=== PATIENT | female | born 1985 | race Caucasian/White ===

== ENCOUNTER 2018-12-17 11:30 | Outpatient (RCR) | payer SELFPAY | END 2018-12-21 23:59 | LOC: DC 11:30 | PROVIDERS: Family Provider Family Medicine; PCP Family Medicine | DX: O24.419 Gestational diabetes mellitus in pregnancy, unspecified control (principal) | CPT/HCPCS: 97802 ==

== ENCOUNTER 2018-12-24 15:50 | Outpatient (RCR) | payer SELFPAY | END 2018-12-24 23:59 | disposition home or self-care (01) | LOC: DC 15:50 | PROVIDERS: Family Provider Family Medicine; PCP Family Medicine | DX: O24.419 Gestational diabetes mellitus in pregnancy, unspecified control (principal) ==

== ENCOUNTER 2022-08-10 23:41 | Inpatient (IN) | payer SELFPAY, OTHER ==
[2022-08-10 23:47] VITALS: BMI 33.3
[2022-08-10 23:48] VITALS: PULSE 87; O2SAT 97
[2022-08-10 23:49] VITALS: PULSE 83; O2SAT 98
[2022-08-10 23:53] VITALS: BP 115/76; PULSE 93
[2022-08-10 23:54] VITALS: PULSE 91; O2SAT 97
[2022-08-10 23:56] VITALS: PULSE 92; O2SAT 93
[2022-08-11] VITALS (19 sets, daily range): BP systolic 96–120; BP diastolic 52–76; PULSE 68–92; RESP 16–20; TEMP 36.5–36.8; O2SAT 91–100
[2022-08-11] MEDS: Acetaminophen 500 MG Tablet PO (00:22)
[2022-08-11] MEDS: Sodium Citrate/Citric Acid 30 ML UDC PO (00:22)
[2022-08-11] MEDS: Lactated Ringers 1,000 ML 999 ML IV (00:22)
[2022-08-11 00:25] LABS: Absolute Lymphocyte Count 2.87 X10^3/uL (0.83-4.51); Absolute Neutrophil Count 8.6 X10^3/uL (2.0-7.7); Basophil# 0.04 X10^3/uL; Basophil% 0.3 % (0-1); Eosinophil# 0.27 X10^3/uL; Eosinophils% 2.1 % (0-5); Hematocrit 37.7 % (37-47); Hemoglobin 12.6 g/dL (12.0-15.0); Lymphocyte # 2.87 X10^3/ul (0.83-4.51); Lymphocyte % 22.6 % (19-41); Mean Corp Hgb Conc 33.4 g/dL (32-36); Mean Corpuscular Hgb 32.8 pg (27.0-32.0); Mean Corpuscular Volume 98.2 fL (81-99); Mean Platelet Vol. 9.9 fl (6.2-12.0); Monocyte% 7.1 % (0-10); NRBC Flagged by Analyzer 0 % (0-5); Neutrophil # 8.55 X10^3/uL (2.7-7.7); Neutrophil % 67.3 % (47-70); Platelet Count 333 K/mm3 (150-450); RBC Distribution Width CV 13.3 % (11.6-14.6); RBC Distribution Width SD 47.6 fl (35.1-43.9); Red Blood Count 3.84 M/mm3 (4.2-5.4); White Blood Count 12.7 K/mm3 (4.4-11.0)
--- NOTE | 2022-08-11 00:25 | PCM.HP.OB ---
HPI - General General Date of Admission: 08/11/22 Date of Service: 08/11/22 HPI Narrative ALVARADO DYE, is a 36 F @ 37.2 weeks who c/o ctx since 7pm - found to be 7cm on admission- h/o 2 previous cs, ? myomectomy and 2 previous vaginal deliveries. PFSH PFSH Medical History (Updated 08/11/22 @ 00:[address] Elmira Gaming MD) Gestational diabetes History of pre-term labor Vaginal after Allergy/AdvReac Type Severity Reaction Status Date / Time No Known Allergies Allergy Verified 08/10/22 23:50 Surgical History (Updated 08/11/22 @ 00:[address] Elmira Gaming MD) History of surgery Previous section Social History Smoking Status: Never smoker History Elective abortions Hx Para 4 Spontaneous abortions Hx # Term Pregnancies Ectopic pregnancies Hx # Pregnancies Multiple births # of living children NST FHR Rate Baby A Baseline: 140 Variability:: Moderate Accelerations:: 15 x 15 Decelerations:: None NST Reactive:: Yes FHR Category:: Category I Uterine Activity:: q2-5 min Vital Signs Vital Signs Vital Signs: 08/11/22 00:18 08/10/22 23:48 08/10/22 23:48 Temperature 98.1 F Temperature Source Temporal Pulse Rate 92 87 Respiratory Rate 16 Blood Pressure 115/76 Blood Pressure Mean 89 BP Systolic BP Diastolic Blood Pressure Source Monitor Blood Pressure Position Semi-Fowlers Blood Pressure Location Right Arm Pulse Ox 97 97 Oxygen Delivery Method Room Air 08/10/22 23:49 08/10/22 23:49 08/10/22 23:53 Temperature Temperature Source Pulse Rate 83 Respiratory Rate Blood Pressure 115/76 Blood Pressure Mean BP Systolic 115 BP Diastolic 76 Blood Pressure Source Blood Pressure Position Blood Pressure Location Pulse Ox 98 Oxygen Delivery Method 08/10/22 23:53 08/10/22 23:54 08/10/22 23:54 Temperature Temperature Source Pulse Rate 93 91 Respiratory Rate Blood Pressure Blood Pressure Mean BP Systolic BP Diastolic Blood Pressure Source Blood Pressure Position Blood Pressure Location Pulse Ox 97 Oxygen Delivery Method 08/10/22 23:56 08/10/22 23:56 Temperature Temperature Source Pulse Rate 92 Respiratory Rate Blood Pressure Blood Pressure Mean BP Systolic BP Diastolic Blood Pressure Source Blood Pressure Position Blood Pressure Location Pulse Ox 93 Oxygen Delivery Method Weight Weight: 93.7 kg Body Mass Index (BMI) 33.3 Labs Labs Labs: Blood Type Pending Antibody Screen Pending Hct Pending Hgb Pending Syphilis Total Ab Pending HIV 1&2 Antibody Pending Assessment & Plan (1) Gestational diabetes mellitus (GDM): (2) 37 weeks gestation of : (3) Previous delivery affecting : (4) AMA (advanced maternal age) multigravida 35+: (5) Encounter for sterilization: (6) Arrested active labor, delivered, current hospitalization: (7) Late care affecting : (8) Positive GBS test: PLAN: Plan Admit to L&D [place] FHR/TOCO Epidural if requested for pain Monitor VS OR team notified Will plan for cs- recheck in OR prior to spinal if complete consider Vaginal delivery Ancef 2g
[2022-08-11] MEDS: Oxytocin 15 Units/NS 250ml 15 UNITS/250 ML IV.SOLN 83 UNITS IV (01:09)
[2022-08-11] MEDS: Oxytocin 10 UNITS/ML Vial IM (01:11)
--- NOTE | 2022-08-11 01:15 | PCM.PN.BLA ---
Progress Note Patient was taken to the operating room at that time prior to spinal decision was made to perform a cervical exam she was found to be 9 and half centimeters bulging membranes station at 0 and 100% effaced. At that time I counseled the patient and her regarding vaginal delivery versus section and the risks and benefits for both of these. They wanted to proceed with a vaginal delivery. The team was notified and delivery to be performed in the operating room due to increased risk for uterine rupture because of history of 2 previous sections and questionable history of myomectomy we do not have an operative report on this. At this time the delivery table was brought into the room artificial rupture membranes was performed she quickly progressed to complete and +1 station.
--- NOTE | 2022-08-11 01:18 | OP.PCM_ITS ---
Vaginal Delivery Maternal Presentation Maternal Presentation: Active Labor Operative Information Date of Procedure: 08/11/22 Pre-Operative Diagnosis: AMA, h/o CS x 2, previous , GDMA2, Late care, GBS positive Post-Operative Diagnosis: same, live female infant Surgery / Procedure Performed: Type of Anesthesia: None Estimated Blood Loss: 150 Time of Delivery: 01:06 Findings Description of Procedure: Patient was in the operating room plan was for a section due to history of 2 previous sections and myomectomy. Vaginal exam was performed prior to the she was 9 and half centimeters bulging bag 100% effaced at this time patient and were counseled on proceeding with a primary C- section versus vaginal . At this time decision was made to allow vaginal delivery in the operative room they were counseled on the risks and benefits of both. They were counseled on the possible risk of uterine rupture. They desired to proceed with a vaginal delivery. Artificial rupture membranes was performed. Clear fluid. At this time patient quickly progressed to fully dilated with artificial rupture membranes and with good maternal pushing efforts delivered the 's head followed by the anterior and posterior shoulders and the rest the infant's body. The infant was then placed on the mother's chest for immediate skin to skin. Delayed cord clamping was performed nursery team and armor reconnaissance vehicle crewman were present for delivery. Infant was vigorous at delivery. IM Pit and IV Pitocin were given. Vaginal and perineal tissue were evaluated and noted to be intact. Placenta was then delivered without complication and intact. Amniotic Membrane Rupture Type: Artificial Amniotic Fluid Description: Clear Placental Delivery Description: Spontaneous Placenta Disposition: [facility] Specimen(s) Removed: placenta Cord Vessel Description: 3 Vessels Cord Entanglement: None A Gender: Female (1 minute): 8 (5 minute): 9 Delayed Cord Clamping: Yes Post Vaginal Delivery Medications Given After Delivery: IV Pitocin and IM Pitocin Episiotomy Description: None Laceration: None Complication Complications: None
[2022-08-11 01:26] LABS: Bedside Glucose 103 mg/dL (74-106)
[2022-08-11 01:54] LABS: HIV - WCH Non-Reactive (Nonreactive); Hepatitis C Antibody Non-Reactive (Nonreactive); Syphilis Antibodies Non-reactive
[2022-08-11 03:00] LABS: Bedside Glucose 123 mg/dL (74-106)
[2022-08-11] MEDS: Ibuprofen 600 MG Tablet PO ×2 (03:31→18:10)
--- NOTE | 2022-08-11 08:25 | PN.OBGYN_ITS ---
Subjective Subjective Patient seen at bedside. Feeling good. Denies any pain. Has not voided since delivery. independently. Anticipate discharge home tomorrow. Objective Data Objective Data Vital Signs: Vital Signs Temp Pulse Resp BP Pulse Ox O2 Del Method 98.2 F 83 20 H 102/52 L 95 Room Air 08/11/22 08:08 08/11/22 08:08 08/11/22 08:08 08/11/22 08:08 08/11/22 08:08 08/11/22 08:08 Oxygen Delivery Method Room Air Weight: 206 lb 9.17 oz Body Mass Index (BMI) 33.3 Intake & Output: Intake and Output for Last 24 Hours 08/09/22 08/10/22 08/11/22 23:59 23:59 23:59 Intake Total 1250 / 1250 Balance 1250 / 1250 Lab / Micro Data Result Diagrams: 08/11/22 00:05 Labs: Laboratory Results - last 24 hr 08/11/22 00:05: WBC 12.7 H, RBC 3.84 L, Hgb 12.6, Hct 37.7, MCV 98.2, MCH 32.8 H , MCHC 33.4, RDW Std Deviation 47.6 H, RDW Coeff of [place] 13.3, Plt Count 333, MPV 9.9, Immature Gran % (Auto) 0.600, Neut % (Auto) 67.3, Lymph % (Auto) 22.6, [place] % (Auto) 7.1, Eos % (Auto) 2.1, Baso % (Auto) 0.3, Absolute Neuts (auto) 8.6 H, Absolute Lymphs (auto) 2.87, Nucleated RBC % 0 08/11/22 00:05: Blood Type A POSITIVE, Antibody Screen NEGATIVE 08/11/22 00:05: Syphilis Total Ab Non-reactive, HIV 1&2 Antibody Non-Reactive 08/11/22 00:05: Hepatitis C Antibody Non-Reactive 08/11/22 00:36: POC Glucose 103 08/11/22 02:38: POC Glucose 123 H Physical Exam Const alert and no apparent distress General Appearance: cooperative and comfortable Exam Limitations: no limitations HEENT normocephalic Eyes General Eye: normal appearance of both eyes Neck full ROM General: normal visual inspection Chest Chest: symmetrical chest wall rise Resp normal respiratory effort and normal air movement Effort and Inspection: symmetric chest movement Auscultation: clear to auscultation bilaterally Cardio regular rate and regular rhythm GI normal to inspection, nondistended, normoactive bowel sounds Back/Spine normal ROM Extremity full ROM and no calf tenderness General Extremity: normal exam except as noted Skin no rashes or lesions noted Neuro CN's II-XII intact bilaterally Psych mental status grossly normal Assessment & Plan (1) Positive GBS test: (2) Late care affecting : (3) AMA (advanced maternal age) multigravida 35+: (4) Previous delivery affecting : (5) Gestational diabetes mellitus (GDM): PLAN: Plan PPD Routine care Pain control support Anticipate discharge home tomorrow
[2022-08-12 01:01] VITALS: BP 106/59; PULSE 60; RESP 18; TEMP 36.6; O2SAT 95
[2022-08-12] MEDS: Ibuprofen 600 MG Tablet PO (06:10)
[2022-08-12 06:31] LABS: Bedside Glucose 86 mg/dL (74-106)
[2022-08-12 08:15] VITALS: BP 107/67; PULSE 71; RESP 16; TEMP 36.4; O2SAT 94
--- NOTE | 2022-08-12 09:42 | PCM.PN.OB ---
Subjective Subjective Patient seen at bedside. independently. Denies any pain. Ambulating and voiding without difficulty. Lochia decreased. Desires discharge home today. Objective Data Objective Data Vital Signs: Vital Signs Temp Pulse Resp BP Pulse Ox O2 Del Method 97.5 F L 71 16 107/67 94 Room Air 08/12/22 08:15 08/12/22 08:15 08/12/22 08:15 08/12/22 08:15 08/12/22 08:15 08/12/22 08:15 Oxygen Delivery Method Room Air Weight: 206 lb 9.17 oz Body Mass Index (BMI) 33.3 Intake & Output: Intake and Output for Last 24 Hours 08/10/22 08/11/22 08/12/22 23:59 23:59 23:59 Intake Total 1250 / 1250 Output Total 1800 / 1800 Balance -550 / -550 Lab / Micro Data Result Diagrams: 08/11/22 00:05 Labs: Laboratory Results - last 24 hr 08/12/22 06:05: POC Glucose 86 ROS Eyes Eyes: Denies blurry vision, change in vision or spots in vision ENT HEENT: Denies dizziness or headache(s) Cardiovascular Cardiovascular: Denies abdominal pain, chest pain or dyspnea Respiratory/Chest Respiratory/Chest: Denies cough, dyspnea, shortness of breath at rest or shortness of breath with exertion Gastrointestinal Gastrointestinal: Denies abdominal pain, diarrhea or vomiting Genitourinary Genitourinary: Denies change in urinary stream, difficulty urinating or dysuria Musculoskeletal Musculoskeletal: Reports none Integumentary Integumentary: Denies rash Neurologic Neurologic: Denies dizziness, headache(s), memory loss or weakness Physical Exam Const alert and no apparent distress General Appearance: cooperative and comfortable Exam Limitations: no limitations HEENT normocephalic Eyes General Eye: normal appearance of both eyes Neck full ROM General: normal visual inspection Chest Chest: symmetrical chest wall rise Resp normal respiratory effort and normal air movement Effort and Inspection: symmetric chest movement Auscultation: clear to auscultation bilaterally Cardio regular rate and regular rhythm GI normal to inspection, nondistended, normoactive bowel sounds Back/Spine normal ROM Extremity full ROM and no calf tenderness General Extremity: normal exam except as noted Skin no rashes or lesions noted Neuro CN's II-XII intact bilaterally Psych mental status grossly normal Assessment & Plan (1) Vaginal after : (2) Late care affecting : (3) AMA (advanced maternal age) multigravida 35+: (4) Care and examination of lactating mother: PLAN: Plan PPD 1 Routine care support D/C home with follow up with family physician per patient's request
--- NOTE | 2022-08-12 09:55 | DCINST_ITS ---
Discharge Instructions Diet Discharge Diet: No restrictions Activity Discharge Activity: Return to Normal Activity, May Shower and May Take a Tub Bath May resume sexual activity in: 4-6 weeks Weight Bearing Status: Weight bearing as tolerated Dressing / Incision Call your doctor if you observe: Inability to urinate, Using more than 1 pad per hour, Shortness of breath, Dizziness, Swelling in the ankles, Chest pain, Calf discomfort and Uncontrolled pain Follow Up Care When: Within 10 days Test Results: Test results from this visit will be discussed in further detail at your follow- up appointment, if applicable. Discharge Plan Admission Admit Date/Time: 08/10/22 23:41 Primary Reason for Your Visit: Labor and Delivery Attending Provider: Elmira Gaming Primary Care Provider: Saulo Ribera Discharge Orders/Prescriptions Prescriptions: No Action 1 cap PO/SL DAILY Referrals / Follow Up: Saulo Ribera DO [Primary Care Provider] - Disposition Disposition (needs filled in before D/C Order can be placed): Home, Self Care
[2022-08-12 11:37] VITALS: BP 106/66; PULSE 74; RESP 16; TEMP 36.3; O2SAT 94
== END 2022-08-12 13:24 | disposition home or self-care (01) | DRG 807 ==
LOC: WPOUT 23:42 → WP 08-11 00:03 → WPOUT 08-11 00:05 → WP 08-11 00:05
PROVIDERS: Admitting Provider Obstetrics & Gynecology; PCP Family Medicine; Referring Provider Obstetrics & Gynecology; Visit Provider Obstetrics & Gynecology
DX: O34.219 Maternal care for unspecified type scar from previous cesarean delivery (principal); Z37.0 Single live birth; O24.429 Gestational diabetes mellitus in childbirth, unspecified control; B95.1 Streptococcus, group B, as the cause of diseases classified elsewhere; O26.23 Pregnancy care for patient with recurrent pregnancy loss, third trimester; O99.824 Streptococcus B carrier state complicating childbirth; Z3A.37 37 weeks gestation of pregnancy
CPT/HCPCS: 59025; 59050; 82962; 85025; 86703; 86780; 86803; 86850; 86900; 86901; 99221; J7120; G0378